=== PATIENT | female | born 1935 | race Caucasian/White ===

== ENCOUNTER → 2023-09-02 12:28 | Outpatient (REF) | payer MEDICARE, BC, SELFPAY | LOC: RAD 12:28 | PROVIDERS: ATTENDING PHYSICIAN Internal Medicine | DX: M25.552 Pain in left hip (principal) | CPT/HCPCS: 73502 ==

== ENCOUNTER 2023-11-07 05:58 | Inpatient (IN) | payer MEDICARE, BC, SELFPAY ==
--- NOTE | 2023-10-04 10:32 | CM ---
Patient is scheduled for an elective L THR on 11/07/23. Spoke with patient prior to surgery via telephone. Introduced role of Orthopedic Navigator. Patient reports that she lives alone in a two story home. There are two steps (1-1) to enter and a
flight of steps to the second floor (bilateral rails). She currently functions independently and uses a cane. She has no other DME and has never had VN services. PCP is Dr. Tate Bledsoe.
Discussed orthopedic program and post surgical plans. Reviewed anticipated length of stay and that goal is for her to return home at discharge. Also reviewed outpatient PT. Patient is in agreement with tentative plan but will not have transportation
for outpatient PT and will need VN services. Options and PAC data reviewed; patient selects [facility]. Patient states that her son will be staying with her for a week.
Patient will complete online education.
Plan: Orthopedic Navigator will remain available to assist with the care of patient and will reassess discharge needs after surgery.
[2023-10-18 09:18] VITALS: BMI 31.6
[2023-10-18 10:42] LABS: Hematocrit 37.8 % (37.0-47.0); Hemoglobin 13.4 g/dL (12.0-16.0); Mean Corp Hgb Conc. 35.4 g/dL (33.0-37.0); Mean Corpuscular Volume 84.6 fL (81.0-99.0); Mean Platelet Volume 9.2 fL (7.4-10.4); Platelet Count 315 10^3/uL (130-400); Red Blood Cell Count 4.47 10^6/uL (4.20-5.40); Red Cell Dist. Width 12.4 % (11.5-14.5); White Blood Cell Count 7.2 10^3/uL (4.8-10.8)
[2023-10-18 11:35] LABS: ALT (SGPT) 18 U/L (0-35); AST (SGOT) 27 U/L (14-36); Albumin 4.3 g/dl (3.5-5.0); Alkaline Phosphatase 92 U/L (38-126); Blood Urea Nitrogen 20 mg/dl (7-17); Calcium 10.1 mg/dl (8.4-10.2); Carbon Dioxide 28 mmol/L (22-30); Chloride 96 mmol/L (98-107); Estimated Creatinine Clearance 67 ml/min; Glucose 103 mg/dl (70-99); Sodium 132 mmol/L (135-145); Total Bilirubin 0.4 mg/dl (0.2-1.3); Total Protein 6.9 g/dl (6.3-8.2); eGFR > 60.00
[2023-10-18 12:25] LABS: Glycohemoglobin (HgbA1c) 6.3 % (4.0-5.6)
[2023-10-18 13:57] VITALS: BMI 31.6
[2023-11-07] VITALS (17 sets, daily range): BP systolic 86–153; BP diastolic 50–80; PULSE 66–81; O2SAT 98
[2023-11-07] MEDS: CELEBREX 200 MG PO (06:24)
[2023-11-07] MEDS: TYLENOL 650 MG PO ×2 (06:25→17:18)
[2023-11-07] MEDS: NORMOSOL-R 1000 IV (06:33)
[2023-11-07] MEDS: NSS 1000 IV (09:20)
--- NOTE | 2023-11-07 09:43 | SUR.PHASEI ---
Pharmacy called prior to administration of Tylenol # 3 as allergy listed. Told it was safe to give Tylenol #3. Yury Jordan RN BSN.
--- NOTE | 2023-11-07 10:53 | PTCARENOTE ---
Received patient from PACU via bed around 1015 in stable condition. Left hip dressing c/d/i. Left foot cool but cap refill < 2 sec. LLE pedal pulse by doppler. B/L + movement + sensation. Patient oriented to room. Call chatman in reach.
[2023-11-07 11:44] LABS: Glucose - Point of Care 139 mg/dl (70-99)
--- NOTE | 2023-11-07 12:42 | W.PN.ORTHO ---
Today's Communication / Plan
-
Await cardio recs and pending labs.
D/c when clinically stable.
Assessment
.
Dressing:
Clean, dry and intact.
Assessment:
L hip OA s/p Koki méndez/ Dr Naranjo 11/07/23
DVT prophylaxis - ASA, b/l venous foot pumps
Rapid response 2* syncope w/ associated marked bradycardia - pt reported initial lightheadedness when picking head up to drink cup of water while in bed - became responsive/HR improved after Trendelenberg position
- Consult Cardiology
- Labs pending
- EKG post-syncope w/ sinus bradycardia and ST and T wave abnormalities
- Monitor on tele
- Orthostatics q8h
- Hold Toprol XL tonight and AM anti-hypertensives (unless cardio feels differently). Last BB dose reportedly 11/05 at 8 PM
- Of note, pt describes h/o distant vasovagal syncope
Hypertension with white coat syndrome - holding anti-hypertensives given syncope POD 0 - monitor BP
Paroxysmal atrial tachycardia with palpitations - monitor on tele
- Holding Toprol XL given recent bradycardia
Ulcerative colitis - minimize NSAIDs post-surgery
Mild mitral regurgitation
Mild aortic regurgitation
Venous varicosities with insufficiency
Villous adenoma polyp, status post right hemicolectomy 2008
Lumbosacral degenerative disc disease
Left breast cancer, 1998, status post right lumpectomy and radiation
Squamous cell carcinoma, status post recurrent excisions
Overactive bladder
Stress incontinence
History of recurrent urinary tract infections
Mild hyponatremia
Prediabetes, A1c 6.3
Obesity, BMI 31.6
Plan
.
Surgery / Date: Koki méndez/ Dr Naranjo 11/07/23
DVT Prophylaxis: Aspirin
Activity:
Out of bed.
PT/OT
Discharge Plan: Home w/ VN
Subjective
.
.:
Rapid response called on this patient 2* syncope associated w/ marked bradycardia.
Pt assessed after rapid response - she's AAO x3. Neurologically intact. Denies current lightheadedness.
Vital Signs and Labs
.
Vital Signs and Labs:
Lab Results
10/18/23 10:27
10/18/23 10:27
Temp Pulse Resp BP Pulse Ox
98.4 F 73 16 153/80 100
11/07/23 06:15 11/07/23 06:15 11/07/23 06:15 11/07/23 06:15 11/07/23 06:15
Physical Exam
-
HEENT: No pallor, cyanosis, or jaundice. Throat clear.
NECK: Supple. No JVD.
RESPIRATORY: Lungs clear to auscultation.
CVS: Sinus bradycardia.
ABDOMEN: Soft, non-tender. No distension. Obese.
EXTREMITIES: Strength equal, no calf pain with palpation/dorsiflexion. Calves soft.
AIR BAG CURER: AOx3. No focal deficits. clearing supervisor grossly intact
[2023-11-07 12:56] LABS: Hematocrit 30.3 % (37.0-47.0); Hemoglobin 10.8 g/dL (12.0-16.0); Mean Corp Hgb Conc. 35.6 g/dL (33.0-37.0); Mean Corpuscular Hgb 30.8 pg (27.0-31.0); Mean Corpuscular Volume 86.3 fL (81.0-99.0); Mean Platelet Volume 9.6 fL (7.4-10.4); Platelet Count 250 10^3/uL (130-400); Red Blood Cell Count 3.51 10^6/uL (4.20-5.40); Red Cell Dist. Width 12.6 % (11.5-14.5); White Blood Cell Count 11.2 10^3/uL (4.8-10.8)
--- NOTE | 2023-11-07 13:03 | PTCARENOTE ---
Around 1135, phototypesetting equipment monitor alarming patients HR <50. HR steadily dropping to 30's. Went to assess patient. At that time patient was actively ringing. Patient stated she didn't feel well and become unresponsive. HR dropped to 28. BP 120/57. Blood
glucose 139. HIGHWAY ENGINEER called around 1136. Patient placed in Trendelenburg. Patient unresponsive to sternal rub. Patient remained unresponsive for about 30-45 seconds minute. Patient slowing awoke while in Trendelenburg. Was oriented x3. HIGHWAY ENGINEER in room. At
1145, BP 113/56 HR 61 94 RA. At 1155 BP 128/60 HR 60. EKG obtained. Labs drawn. Lana HARPER made aware and came to see patient. Cardiology c/s pending.
[2023-11-07 13:05] LABS: Blood Urea Nitrogen 19 mg/dl (7-17); Calcium 8.6 mg/dl (8.4-10.2); Carbon Dioxide 28 mmol/L (22-30); Chloride 97 mmol/L (98-107); Estimated Creatinine Clearance 67 ml/min; Glucose 116 mg/dl (70-99); Magnesium 1.7 mg/dl (1.6-2.3); Potassium 3.5 mmol/L (3.5-5.1); Sodium 132 mmol/L (135-145); eGFR > 60.00
--- NOTE | 2023-11-07 13:42 | CON.CAR ---
Addendum entered and electronically signed by Jonnie Jane DO 11/07/23 16:09:
I saw and examined the patient.
The Motor Vehicle Emissions Inspector's note was reviewed and I agree with the note.
Comment:
Plan:
HR and bp remain stable post vagal event.
Cont tele
Hold putpt Norvasc, HCTZ, Losartan and Toprol for now.
Consider resuming antihypertensives next 24 hrs pending bps. May hold HCTZ until reeval as outpt.
Discussed with family at bedside.
Recent echo reviewed, no need to repeat at this time.
Original Note:
Consultation
Consultation Request
Date/Time Consultation Requested: 11/07/2023
Date/Time Consultation Performed: 11/07/2023
Requesting Provider: Dr. Naranjo
Performing Provider: Dr. Jane
Reason for Consultation: Syncope, bradycardia
Medical History
-
History of Present Illness:
HPI: Allegra is an 87 year old female with PMH of hypertension, atrial tachycardia, mild MR, mild AR, UC, and breast cancer who presented for elective L BENNIE. She did well with the procedure, however after she returned to her room, she was taking a
sip of water when she started to feel lightheaded. She became bradycardic with HR dropping into the 30s. With this, she had syncopal episode and was out of it for approximately 30 seconds to 1 minute. She did not lose her pulse and no CPR was
required. She recovered after being placed in Trendelenburg position. HRs recovered into the 60s and she reports she is feeling well at this time. She admits to a history of vasovagal syncope and states she has had episodes like this in the past, so
she knew she was going to pass out. She has no dizziness, lightheadedness, SOB, chest pain or palpitations at this time. Pain is adequately controlled. Cardiology consulted for evaluation.
PMH:
Hypertension
Paroxysmal atrial tachycardia
Mild MR, mild AR by echo 05/2023
Ulcerative colitis
L breast cancer s/p lumpectomy and radiation
Prediabetes
Past Medical History
Past Medical History: Other (In HPI)
Past Surgical History: Orthopedic (L BENNIE 11/07/2023) and Other (R breast lumpectomy, cataract surgery b/l, appendectomy and colon resection)
Social History
Tobacco: Non-Smoker
Alcohol: None
Drug: None
Living: With Family
Employment: Retired
Family History
Family History: Hypertension
Allergies / Home Medications
Allergy/AdvReac Type Severity Reaction Status Date / Time
acetaminophen [From Percocet] Allergy vomiting Verified 11/07/23 06:07
and
dizziness
lisinopril Allergy cough and Verified 11/07/23 06:07
rash
oxycodone HCl [From Percocet] Allergy vomiting Verified 11/07/23 06:07
and
dizziness
pantoprazole sodium Allergy Rash Verified 11/07/23 06:07
[From Protonix]
adhesive bandages Allergy Rash Uncoded 11/07/23 06:07
�Medication �Instructions �Recorded �Confirmed �Type
amlodipine 2.5 mg tablet 2.5 mg PO DAILY 10/12/23 11/07/23 History
aspirin 81 mg chewable tablet 81 mg PO DAILY 10/12/23 11/07/23 History
cod liver oil 1 cap PO DAILY 10/12/23 11/07/23 History
hydrochlorothiazide 50 mg tablet 50 mg PO DAILY 10/12/23 11/07/23 History
ibuprofen 200 mg tablet (Advil) 200 mg PO QPM Pain 10/12/23 11/07/23 History
ibuprofen 200 mg tablet (Advil) 400 mg PO .AM Pain 10/12/23 11/07/23 History
losartan 100 mg tablet 100 mg PO DAILY 10/12/23 11/07/23 History
magnesium 200 mg tablet 400 mg PO DAILY 10/12/23 11/07/23 History
metoprolol succinate 50 mg 50 mg PO HS 10/12/23 11/07/23 History
tablet,extended release 24 hr
multivitamin 1 tab PO DAILY 10/12/23 11/07/23 History
mupirocin 2 % topical ointment 1 applic intranasal BID #1 tube 10/18/23 Rx
Review of Systems
-
History Source: Patient
All other systems: Negative unless noted
Physical Exam
Vital Signs
Temp Pulse Resp BP Pulse Ox
97.0 F 68 18 130/70 95
11/07/23 09:45 11/07/23 12:50 11/07/23 10:10 11/07/23 12:50 11/07/23 11:55
Lab Results
11/07/23 12:26
11/07/23 12:26
Physical Exam
General: Well Developed, Well Nourished and No Apparent Distress
HEENT: Normocephalic, Anicteric and Moist Mucous Membranes
Respiratory: Clear and Non Labored Respirations
Cardiac: S1/S2 and Regular Rhythm
Musculoskeletal: No Clubbing, No Cyanosis and No Edema
Skin: Warm and Dry
Neuro: AO x 3 and Nonfocal/Grossly Intact
Psych: Calm
Impression / Plan
-
PCP: Dr. Bledsoe
Sales Floor Team Leader: Dr. Jane
Impression:
OA s/p L BENNIE 11/07/2023
Syncope, suspect vasovagal
Bradycardia
Hypertension
Paroxysmal atrial tachycardia
Mild MR, mild AR by echo 05/2023
Ulcerative colitis
L breast cancer s/p lumpectomy and radiation
Prediabetes
Echo 05/30/2023: EF 70-75%, mild cLVH, mild MR, mild AR, minimally dilated aortic root, 3.7cm
Plan:
-s/p L BENNIE 11/06. Pain well controlled currently, does note some mild burning that is starting
-Syncopal episode noted today after taking a drink of water. Became bradycardic and felt lightheaded like she was going to pass out.
-Did briefly lose consciousness, however did not lose pulse. HR dropped to 28bpm. Improved after being placed in Trendelenburg position.
-Patient notes history of syncope similar to this.
-HR stable in the 60s currently on review of telemetry.
-BP stable. OP amlodipine, losartan, HCTZ, and Toprol currently held.
-Follow BP and HR overnight and resume as able.
-Hgb stable at 10.8.
-K 3.5, will replete.
HPI: Allegra is an 87 year old female with PMH of hypertension, atrial tachycardia, mild MR, mild AR, UC, and breast cancer who presented for elective L BENNIE. She did well with the procedure, however after she returned to her room, she was taking a
sip of water when she started to feel lightheaded. She became bradycardic with HR dropping into the 30s. With this, she had syncopal episode and was out of it for approximately 30 seconds to 1 minute. She did not lose her pulse and no CPR was
required. She recovered after being placed in Trendelenburg position. HRs recovered into the 60s and she reports she is feeling well at this time. She admits to a history of vasovagal syncope and states she has had episodes like this in the past, so
she knew she was going to pass out. She has no dizziness, lightheadedness, SOB, chest pain or palpitations at this time. Pain is adequately controlled. Cardiology consulted for evaluation.
Data Reviewed
-
EKG: Tracing Personally Visualized and interpreted
Radiology: Report Reviewed by me
Labs: Labs Reviewed by me
Old Records: Reviewed
[2023-11-07] MEDS: ANCEF 5 IV (14:42)
[2023-11-07] MEDS: KCL 20 MEQ PO (14:42)
[2023-11-07] MEDS: ASPIRIN 325 MG PO (17:18)
[2023-11-07 17:30] LABS: Glucose - Point of Care 134 mg/dl (70-99)
[2023-11-07] MEDS: BACTROBAN 2% OINTMENT 1 APPLIC NASAL (20:26)
[2023-11-07] MEDS: COLACE 100 MG PO (20:27)
[2023-11-07] MEDS: SENOKOT 17.1999999999999993 MG PO (20:27)
[2023-11-07] MEDS: DECADRON 4 MG PO (20:29)
[2023-11-07 21:38] LABS: Glucose - Point of Care 171 mg/dl (70-99)
[2023-11-08] MEDS: ANCEF 5 IV (00:04)
[2023-11-08] MEDS: TYLENOL 650 MG PO (00:04)
[2023-11-08 03:30] VITALS: BP 147/80
[2023-11-08 07:08] VITALS: BP 134/76
[2023-11-08 07:24] LABS: Glucose - Point of Care 175 mg/dl (70-99)
--- NOTE | 2023-11-08 08:05 | CM ---
Reviewed chart and held rounds with PT, OT and nursing. Patient admitted as planned for elective L THR. Met with patient, son and [id number] at bedside. Confirmed information previously obtained for assessment. Also discussed discharge plans.
The plan is for patient to return home at discharge. Her children will be staying with her until Tuesday. Patient is concerned about doing steps; told her she will practice steps with PT before discharge. Reviewed VN services including start of care
(tentatively 11/08), services to be ordered (PT, OT, SN. Family is requesting a FOOD COOKING MACHINE OPERATOR) and frequency/duration of services. Options list provided and PAC data reviewed. Patient selects VN.
Patient has a hip kit, raised toilet seat with rails and a cane at home. She will need a rolling walker issued at discharge; script obtained and given to PT.
VN referral was completed and sent to [facility] through [employer] with request for start of care on 11/08. Confirmation received of their ability to accept case. inspector and clerk to fax discharge instructions to [facility] when complete.
Patient will use [facility] pharmacy for discharge prescriptions.
[2023-11-08 08:30] VITALS: BP 124/71; BP 151/80; BP 151/81; PULSE 104; PULSE 90; PULSE 99
[2023-11-08] MEDS: ASPIRIN 325 MG PO (08:31)
[2023-11-08] MEDS: COLACE 100 MG PO (08:31)
[2023-11-08] MEDS: BACTROBAN 2% OINTMENT 1 APPLIC NASAL (08:31)
[2023-11-08] MEDS: DECADRON 4 MG PO (08:31)
[2023-11-08] MEDS: SENOKOT 17.1999999999999993 MG PO (08:31)
[2023-11-08] MEDS: TYLENOL #3 1 TABLET PO (08:40)
--- NOTE | 2023-11-08 09:14 | W.PN.CARDCBS ---
Today's Communication / Plan
-
She had syncope in the past per pt. No recurrent syncope or bradycardia since episode.
HR and BP stable.
Her Outpt amlodipine, losartan, HCTZ, and Toprol currently held. Resume Toprol and half dose Losartan at 50 mg daily
Monitor H/H
Cont post op care
Discussed with family at bedside.
Impression / Plan
-
.
PCP: Dr. Bledsoe
Arc Cutter: Dr. Jane
Impression:
OA s/p L BENNIE 11/07/2023
Syncope, suspect vasovagal
Bradycardia
Hypertension
Paroxysmal atrial tachycardia
Mild MR, mild AR by echo 05/2023
Ulcerative colitis
L breast cancer s/p lumpectomy and radiation
Prediabetes
Echo 05/30/2023: EF 70-75%, mild cLVH, mild MR, mild AR, minimally dilated aortic root, 3.7cm
Plan:
-s/p L BENNIE 11/06. Pain well controlled. Syncopal episode noted 11/06 after taking a drink of water. Became bradycardic and felt lightheaded like she was going to pass out.
-Did briefly lose consciousness, however did not lose pulse. HR dropped to 28bpm. Improved after being placed in Trendelenburg position.
She had syncope in the past per pt. No recurrent syncope or bradycardia since episode.
HR and BP stable.
Her Outpt amlodipine, losartan, HCTZ, and Toprol currently held. Resume Toprol and half dose Losartan at 50 mg daily
Recent echo reviewed, no need to repeat currently.
Monitor H/H
Cont post op care
Discussed with family at bedside.
HPI: Allegra is an 87 year old female with PMH of hypertension, atrial tachycardia, mild MR, mild AR, UC, and breast cancer who presented for elective L BENNIE. She did well with the procedure, however after she returned to her room, she was taking a
sip of water when she started to feel lightheaded. She became bradycardic with HR dropping into the 30s. With this, she had syncopal episode and was out of it for approximately 30 seconds to 1 minute. She did not lose her pulse and no CPR was
required. She recovered after being placed in Trendelenburg position. HRs recovered into the 60s and she reports she is feeling well at this time. She admits to a history of vasovagal syncope and states she has had episodes like this in the past, so
she knew she was going to pass out. She has no dizziness, lightheadedness, SOB, chest pain or palpitations at this time. Pain is adequately controlled. Cardiology consulted for evaluation.
Progress Note - Arc Cutter
Subjective
Date of Service: November 08, 2023
Pt seen and examined. No complaints. No chest pain or shortness of breath.
Objective
Labs:
11/07/23 12:26
11/07/23 12:26
Labs
Hgb 10.8 g/dL (12.0-16.0) L 11/07/23 12:26
Hct 30.3 % (37.0-47.0) L 11/07/23 12:26
Plt Count 250 10^3/uL (130-400) 11/07/23 12:26
Sodium 132 mmol/L (135-145) L 11/07/23 12:26
Potassium 3.5 mmol/L (3.5-5.1) 11/07/23 12:26
BUN 19 mg/dl (7-17) H 11/07/23 12:26
Creatinine 0.6 mg/dL (0.6-1.0) 11/07/23 12:26
Glucose 116 mg/dl (70-99) H 11/07/23 12:26
Vital Signs and I&O:
Vital Signs
Temp Pulse Resp BP Pulse Ox
98 F 90 18 124/71 94
11/08/23 07:08 11/08/23 08:29 11/08/23 07:08 11/08/23 08:29 11/08/23 07:08
Vital Signs
Temp Pulse Resp BP Pulse Ox
98 F 90 18 124/71 94
11/08/23 07:08 11/08/23 08:29 11/08/23 07:08 11/08/23 08:29 11/08/23 07:08
Intake & Output
11/06/23 11/07/23 11/08/23 11/09/23
06:59 06:59 06:59 06:59
Intake Total 2080 / 2080
Output Total 625 / 625
Balance 1456 / 1456
Physical Exam
Physical Exam
General: No acute distress, AAOX3
Neck: Negative JVD
Heart: Regular, Negative S3 positive S1/S2, Negative S4, No murmur
Lungs: CTA b/l, negative wheezes/rales/rhonchi
Abd: Positive BS, NT/ND, neg rebound/rigidity/guarding
Ext: Negative cyanosis/clubbing/edema
Neuro: nonfocal
[2023-11-08 10:04] VITALS: BP 129/60; BP 137/60; PULSE 99; O2SAT 97
[2023-11-08] MEDS: COZAAR 50 MG PO (10:47)
[2023-11-08 11:00] VITALS: BP 130/63
--- NOTE | 2023-11-08 11:39 | W.PN.ORTHO ---
Today's Communication / Plan
-
D/c today since clinically stable, did well w/ OT and PT.
Assessment
.
Distal Motor Intact: Yes
Dressing:
Clean, dry and intact.
Assessment:
L hip OA s/p Koki AVERY w/ Dr Naranjo 11/07/23
DVT prophylaxis - ASA, b/l venous foot pumps
Rapid response 2* syncope w/ associated marked bradycardia POD 0 - pt reported initial lightheadedness when picking head up to drink cup of water while in bed - became responsive/HR improved after Trendelenberg position
- Appreciate cardio. Will resume Toprol XL and Losartan at 1/2 dose
- Labs with mild reactive leukocytosis and chronic hyponatremia; otherwise stable
- EKG post-syncope w/ sinus bradycardia and ST and T wave abnormalities. Stable in comparison to baseline EKGs
- Stable tele overnight
- Orthostatic VS stable this AM. No need for Midodrine thankfully
- Given the above, episode felt likely to be vasovagal
Hypertension with white coat syndrome - anti-hypertensives held initially due to syncope POD 0
- Given BPs now stable, resume meds as stated above per Cardio
Paroxysmal atrial tachycardia with palpitations - rhythm stable on tele
- Resume Toprol XL
Ulcerative colitis - minimize NSAIDs post-surgery
Urinary retention post-op - improved by POD 1 w/ minimal PVR on bladder scan
Mild mitral regurgitation
Mild aortic regurgitation
Venous varicosities with insufficiency
Villous adenoma polyp, status post right hemicolectomy 2008
Lumbosacral degenerative disc disease
Left breast cancer, 1998, status post right lumpectomy and radiation
Squamous cell carcinoma, status post recurrent excisions
Overactive bladder
Stress incontinence
History of recurrent urinary tract infections
Mild hyponatremia
Prediabetes, A1c 6.3
Obesity, BMI 31.6
Plan
.
Surgery / Date: Koki méndez/ Dr Naranjo 11/07/23
DVT Prophylaxis: Aspirin
Activity:
Out of bed.
PT/OT
Discharge Plan: Home w/ VN
Subjective
.
.:
Patient resting comfortably in her chair this AM.
Feels much better in comparison to yesterday. No further syncopal episodes.
L hip pain well controlled w/ minimal pain meds.
Urinary retention overnight improved by this AM w/ minimal PVR.
Eager for potential d/c today.
Vital Signs and Labs
.
Vital Signs and Labs:
Lab Results
11/07/23 12:26
11/07/23 12:26
Temp Pulse Resp BP Pulse Ox
98 F 90 18 125/64 94
11/08/23 07:08 11/08/23 08:29 11/08/23 07:08 11/08/23 10:47 11/08/23 07:08
Non-invasive Hgb result: 10.8
Physical Exam
-
HEENT: No pallor, cyanosis, or jaundice. Throat clear.
NECK: Supple. No JVD.
RESPIRATORY: Lungs clear to auscultation.
CVS: S1, S2 normal. RRR.
ABDOMEN: Soft, non-tender. No distension. Obese.
EXTREMITIES: Strength equal, no calf pain with palpation/dorsiflexion. Calves soft.
SENIOR PHP SOFTWARE DEVELOPER: AOx3. No focal deficits. cigar making machine supervisor grossly intact
[2023-11-08 11:44] VITALS: BP 125/64; PULSE 87; O2SAT 97
--- NOTE | 2023-11-08 12:13 | W.DS.TRANS ---
DC Summary - Senior Construction Project Manager
-
Discharge Instructions:
Sleep Apnea Risk Low
Discharge Diagnosis/Procedures L hip OA s/p L BENNIE w/ Dr Naranjo 11/07/23
Diet Regular
Activity As tolerated,With Walker
Driving Restrictions Not until seen by your Dr
Bathing Restrictions OK to Shower
Other Services VN,PT,OT
Wound Care Dressing to be removed 1 week post-surgery.
[place] to be removed at 2 week follow-up with
surgeon's office.
Instructions:
Stand-Alone Forms: Total Hip/Knee Replacement D/C
Changes to Home Medications: Yes
Discharge Medications:
DC Medications w/original date entered in qunb
cod liver oil 1 cap PO DAILY Supplement 10/12/23
metoprolol succinate 50 mg tablet,extended release 24 hr 50 mg PO HS Heart Failure 10/12/23
multivitamin 1 tab PO DAILY Supplement 10/12/23
mupirocin 2 % topical ointment 1 applic intranasal BID #1 tube 10/18/23
acetaminophen 300 mg-codeine 30 mg tablet 1 - 2 tab PO Q6H PRN moderate-severe pain #30 tabs 11/08/23
acetaminophen 325 mg tablet 650 mg (2 x 325 mg) PO Q4H PRN mild pain #60 tabs 11/08/23
aspirin 325 mg tablet 325 mg PO DAILY #30 tabs 11/08/23
dexamethasone 4 mg tablet 4 mg PO BID #5 tabs 11/08/23
docusate sodium 100 mg capsule 100 mg PO BID #30 caps 11/08/23
losartan 50 mg tablet 50 mg PO DAILY #30 tabs 11/08/23
ondansetron HCl 4 mg tablet 4 mg PO Q6H PRN nausea and vomiting #30 tabs 11/08/23
sennosides 8.6 mg tablet (Senna Laxative) 17.2 mg (2 x 8.6 mg) PO BID #30 tabs 11/08/23
Home Medication Changes
acetaminophen 300 mg-codeine 30 mg tablet 1 - 2 tab PO Q6H PRN moderate-severe pain #30 tabs 11/08/23
acetaminophen 325 mg tablet 650 mg (2 x 325 mg) PO Q4H PRN mild pain #60 tabs 11/08/23
aspirin 325 mg tablet 325 mg PO DAILY #30 tabs 11/08/23
dexamethasone 4 mg tablet 4 mg PO BID #5 tabs 11/08/23
docusate sodium 100 mg capsule 100 mg PO BID #30 caps 11/08/23
losartan 50 mg tablet 50 mg PO DAILY #30 tabs 11/08/23
ondansetron HCl 4 mg tablet 4 mg PO Q6H PRN nausea and vomiting #30 tabs 11/08/23
sennosides 8.6 mg tablet (Senna Laxative) 17.2 mg (2 x 8.6 mg) PO BID #30 tabs 11/08/23
Pending Results: No
[2023-11-08 12:37] LABS: Glucose - Point of Care 227 mg/dl (70-99)
== END 2023-11-08 14:31 | disposition home health service (06) | DRG 470 ==
LOC: 2 SOUTH 05:58
PROVIDERS: Physician Assistant; ADMITTING PHYSICIAN Specialist; FAMILY PHYSICIAN Internal Medicine
PROC: 0SRB02A Replacement of Left Hip Joint with Metal on Polyethylene Synthetic Substitute, Uncemented, Open Approach (ICD-10-PCS; 2023-11-07)
DX: M16.12 Unilateral primary osteoarthritis, left hip (principal); K51.90 Ulcerative colitis, unspecified, without complications; E87.1 Hypo-osmolality and hyponatremia; I47.19 Other supraventricular tachycardia; I10 Essential (primary) hypertension; M51.37 Other intervertebral disc degeneration, lumbosacral region; E66.9 Obesity, unspecified; R73.03 Prediabetes; R55 Syncope and collapse; R00.1 Bradycardia, unspecified; N32.81 Overactive bladder; N39.3 Stress incontinence (female) (male); Z87.440 Personal history of urinary (tract) infections; Z68.31 Body mass index [BMI] 31.0-31.9, adult; Z85.3 Personal history of malignant neoplasm of breast; Z79.82 Long term (current) use of aspirin; Z79.1 Long term (current) use of non-steroidal anti-inflammatories (NSAID); Z88.6 Allergy status to analgesic agent; Z88.5 Allergy status to narcotic agent; Z91.048 Other nonmedicinal substance allergy status
CPT/HCPCS: 36415; 73502; 80048; 80053; 82962; 83036; 83735; 85027; 87070; 97110; 97116; 97162; 97167; 97530; 97535; C1713; C1776

== ENCOUNTER → 2023-12-01 13:30 | Outpatient (REF) | payer MEDICARE, BC, SELFPAY ==
[2023-12-01 15:35] LABS: % Basophils 0.7 % (0-2); % Eosinophils 3.4 % (0-6); % Immature Granulocytes 0.2 % (0-0.5); % Neutrophils 55.7 % (42.2-75.2); Absolute Eosinophils 0.2 10^3/uL (0-0.7); Absolute Lymphocytes 1.5 10^3/uL (1.2-3.4); Absolute Monocytes 0.9 10^3/uL (0.1-0.6); Absolute Neutrophils 3.2 10^3/uL (1.4-6.5); Hematocrit 32.1 % (37.0-47.0); Hemoglobin 10.8 g/dL (12.0-16.0); Mean Corp Hgb Conc. 33.6 g/dL (33.0-37.0); Mean Corpuscular Hgb 29.8 pg (27.0-31.0); Mean Corpuscular Volume 88.7 fL (81.0-99.0); Mean Platelet Volume 9.7 fL (7.4-10.4); Nucleated Red Blood Cells % 0 %; Platelet Count 387 10^3/uL (130-400); Red Blood Cell Count 3.62 10^6/uL (4.20-5.40); Red Cell Dist. Width 13.8 % (11.5-14.5); White Blood Cell Count 5.8 10^3/uL (4.8-10.8)
[2023-12-01 16:05] LABS: Erythrocyte Sed Rate 48 mm/hour (0-20)
== END ==
LOC: RAD 13:30
PROVIDERS: ATTENDING PHYSICIAN Physician Assistant Surgical; FAMILY PHYSICIAN Internal Medicine
DX: M79.662 Pain in left lower leg (principal); Z96.642 Presence of left artificial hip joint
CPT/HCPCS: 36415; 85025; 85652; 86140; 93971

== ENCOUNTER → 2024-02-28 06:35 | Outpatient (REF) | payer MEDICARE, BC, SELFPAY ==
[2024-02-28 07:22] LABS: % Basophils 1.1 % (0-2); % Eosinophils 3.6 % (0-6); % Immature Granulocytes 0.2 % (0-0.5); % Lymphocytes 25.3 % (20.5-51.1); % Neutrophils 57.8 % (42.2-75.2); Absolute Basophils 0.1 10^3/uL (0-0.2); Absolute Eosinophils 0.2 10^3/uL (0-0.7); Absolute Lymphocytes 1.4 10^3/uL (1.2-3.4); Absolute Monocytes 0.7 10^3/uL (0.1-0.6); Absolute Neutrophils 3.2 10^3/uL (1.4-6.5); Hemoglobin 12.8 g/dL (12.0-16.0); Mean Corp Hgb Conc. 33.7 g/dL (33.0-37.0); Mean Corpuscular Hgb 27.9 pg (27.0-31.0); Mean Corpuscular Volume 82.8 fL (81.0-99.0); Mean Platelet Volume 9.9 fL (7.4-10.4); Nucleated Red Blood Cells % 0 %; Platelet Count 286 10^3/uL (130-400); Red Blood Cell Count 4.59 10^6/uL (4.20-5.40); Red Cell Dist. Width 14.6 % (11.5-14.5); White Blood Cell Count 5.6 10^3/uL (4.8-10.8)
[2024-02-28 08:00] LABS: ALT (SGPT) 16 U/L (0-35); AST (SGOT) 24 U/L (14-36); Alkaline Phosphatase 85 U/L (38-126); Blood Urea Nitrogen 13 mg/dl (7-17); Calcium 9.8 mg/dl (8.4-10.2); Carbon Dioxide 27 mmol/L (22-30); Chloride 102 mmol/L (98-107); Glucose 106 mg/dl (70-99); HDL Cholesterol 56 mg/dl; LDL Cholesterol, Calculated 105 mg/dl; Potassium 4.5 mmol/L (3.5-5.1); Sodium 139 mmol/L (135-145); Total Bilirubin 0.6 mg/dl (0.2-1.3); Total Cholesterol 187 mg/dl (50-199); Total Protein 6.4 g/dl (6.3-8.2); Triglyceride 133 mg/dl (10-149); Very Low Density Lipoprotein 26 mg/dl (0-30); eGFR > 60.00
== END ==
LOC: REG 06:35
PROVIDERS: ATTENDING PHYSICIAN Internal Medicine; REFERRING PHYSICIAN Nuclear Medicine Nuclear Cardiology
DX: Z00.00 Encounter for general adult medical examination without abnormal findings (principal); I10 Essential (primary) hypertension; E66.3 Overweight
CPT/HCPCS: 36415; 80053; 80061; 85025

== ENCOUNTER 2024-08-22 12:33 | Emergency (ER) | payer MEDICARE, BC, SELFPAY ==
[2024-08-22 12:44] VITALS: BP 165/111
[2024-08-22 13:28] LABS: % Basophils 0.9 % (0-2); % Eosinophils 0.6 % (0-6); % Immature Granulocytes 0.2 % (0-0.5); % Lymphocytes 17.2 % (20.5-51.1); % Monocytes 6.3 % (1.7-9.3); % Neutrophils 74.8 % (42.2-75.2); Absolute Basophils 0.1 10^3/uL (0-0.2); Absolute Eosinophils 0.1 10^3/uL (0-0.7); Absolute Lymphocytes 1.4 10^3/uL (1.2-3.4); Absolute Monocytes 0.5 10^3/uL (0.1-0.6); Absolute Neutrophils 6.1 10^3/uL (1.4-6.5); Hematocrit 42.2 % (37.0-47.0); Hemoglobin 14.2 g/dL (12.0-16.0); Mean Corp Hgb Conc. 33.6 g/dL (33.0-37.0); Mean Corpuscular Hgb 28.8 pg (27.0-31.0); Mean Corpuscular Volume 85.6 fL (81.0-99.0); Mean Platelet Volume 9.9 fL (7.4-10.4); Nucleated Red Blood Cells % 0 %; Platelet Count 251 10^3/uL (130-400); Red Blood Cell Count 4.93 10^6/uL (4.20-5.40); White Blood Cell Count 8.2 10^3/uL (4.8-10.8)
[2024-08-22 13:49] LABS: Blood Urea Nitrogen 20 mg/dl (7-17); Calcium 9.7 mg/dl (8.4-10.2); Carbon Dioxide 24 mmol/L (22-30); Chloride 98 mmol/L (98-107); Glucose 97 mg/dl (70-99); Sodium 133 mmol/L (135-145); eGFR > 60.00
[2024-08-22 13:57] LABS: Troponin I < 0.012 ng/ml
[2024-08-22 15:07] VITALS: BP 185/96
[2024-08-22 16:20] VITALS: BP 185/82
[2024-08-22 16:50] VITALS: BP 182/67
[2024-08-22 17:00] VITALS: BP 164/76
--- NOTE | 2024-08-22 17:02 | ED.GENMED ---
History of Present Illness
General
Chief Complaint: Dizziness
Source: patient and ambulance crew
Exam Limitations: none
Time Seen by Provider: 08/22/24 16:14
Nursing documentation reviewed up to this point in time: agreed with
History of Present Illness
History of Present Illness:
88-year-old female presents Emergency Department due to elevated blood pressure and dizziness. She received news that her [id number] down and then felt dizzy immediately. She denies any headache or weakness.
Past History
Past History
ED Past Medical History: Arrthythmia and HTN
ED Past Surgical History: Bowel resection, Gynecological (Tubal ligation) and Other (Bilateral cataract)
Social History
Tobacco: Non-smoker
Alcohol: None
Drug: None
Review of Systems
Review of Systems
Allergies reviewed?: Yes
All Other Systems: Not applicable
Constitutional: Reports no symptoms
EENT: Reports no symptoms
Respiratory: Reports no symptoms
Cardiac: Reports no symptoms
ABD/GI: Reports no symptoms
: Reports no symptoms
Musculoskeletal: Reports no symptoms
Skin: Reports no symptoms
Neurological: Reports dizzy
Endocrine: Reports no symptoms
Hematologic/Lymphatic: Reports no symptoms
Psychiatric: Reports no symptoms
Phy Exam
Physical Exam
Physical Exam:
Physical Exam
General: no apparent distress, not acutely ill, BP 185/82
Neck: supple. no meningeal signs. normal posterior pharynx
Heart: s1/s2 regular rate and rhythm, no murmur. equal radial
pulses.
HEENT: Pupils equal round reactive to light, EOMI
Lungs: no acute respiratory distress. clear bilaterally
Abdomen: normal bowel sounds. not tender. no CVAT
Neuro: alert and oriented. no focal neurological deficits cranial nerves II through XII intact
Skin: no rash
Psychiatric: well kept. interactive and cooperative
Extremities: no edema. no calf tenderness. negative homans. good distal pulses
Course
Orders/Labs/Results
Orders:
Orders
08/22/24 12:45
EKG [Electrocardiogram (*1)] Urgent
Reason for Study: Hypertension, Benign
08/22/24 12:46
EKG- Treatment ONCE
08/22/24 13:17
Basic Metabolic Panel Urgent
Complete Blood Count/With Diff Urgent
Troponin I Urgent
Abnormal Lab Results
08/22/24
13:17
Lymphocytes % 17.2 L %
(20.5-51.1)
Sodium 133 L mmol/L
(135-145)
BUN 20 H mg/dl
(7-17)
Creatinine 0.5 L mg/dL
(0.6-1.0)
08/22/24 13:17
08/22/24 13:17
Vital Signs
Initial and Last Documented VS:
Initial Vital Signs
Temp Pulse Resp BP Pulse Ox
97.4 F 69 18 165/111 99
08/22/24 12:44 08/22/24 12:44 08/22/24 12:44 08/22/24 12:44 08/22/24 12:44
Last Documented Vital Signs
Temp Pulse Resp BP Pulse Ox
97.4 F 63 14 185/82 99
08/22/24 12:44 08/22/24 16:22 08/22/24 16:20 08/22/24 16:20 08/22/24 16:22
MDM/Problems Addressed
Differential Diagnosis Includes:
Hypertensive urgency, ACS
MDM/Problems Addressed:
88-year-old female with hypertension, possibly hypertensive urgency, now asymptomatic. Doubt ACS or PE. EKG compared from 07/04/2024 no changes seen.
Chronic conditions affecting care: HTN and Arrhythmia
*Pulse Oximetry
Patient hypoxic: no
*EKG
Interpreted by ED Provider?: Yes
EKG Intrepretation Date: 08/22/24
EKG Intrepretation Time: 12:54
Interpretation: abnormal
Comparison EKG: no changes
Heart Rate: 70
Rate: normal
Rhythm: sinus
[place]: normal axis
Interval: normal interval
QRS Pattern: normal QRS
Ischemia: non-specific ST changes
*Vice President Digital Strategist Interpretation
Rate: normal
Interpretation: normal
Heart Rate: 72
Rhythm: sinus
*Critical Care Note
Total Time (30-74mins, 75-104mins- exclusive of procedures): Not Applicable
Data Reviewed
Review of Other/Old Records Reveals: Records (Reviewed EKG from 07/04/[address] Colon, who agreed there was no change.)
Source: physician
Patient Management
Social determinants of health affecting care: Living situation
Discussion with other providers: Tester/Lift Trucker (Discussed with Dr. Colon, maintenance journeyman who reviewed today's EKG and EKG from 07/04/2024 and agrees there is no change)
Escalation/DeEscalation of care consider admission/obs:
Admit not indicated
ED Attending Note
-
Portions of this chart may have been created with voice recognition software.� Occasional wrong word or��sound alike� substitutions may have occurred due to the inherent limitations of voice recognition software.
Discharge Plan
Departure
Patient Disposition: Home (Routine Discharge)
Date of Disposition: 08/22/24
Time of Disposition: 17:08
Patient with high blood pressure during this ER visit?: Yes
Condition: Good
Discharge Problem:
Hypertensive urgency
Instructions: Dizziness, BLOOD PRESSURE
Prescriptions:
No Action
metoprolol succinate 50 mg Tablet Extended Release 24 Hr
50 mg PO HS
multivitamin Tablet
1 tab PO DAILY
cod liver oil Capsule
1 cap PO DAILY
mupirocin 2 % ointment
1 applic intranasal BID Qty: 1 0RF
Patient Comments:
last dose was this am, 11/07/23.
aspirin 325 mg Tablet
325 mg PO DAILY Qty: 30 0RF
Rx Instructions:
Take daily x4 weeks for blood clot prevention; then resume Aspirin 81 mg daily.
losartan 50 mg Tablet
50 mg PO DAILY Qty: 30 1RF
Rx Instructions:
HOLD if systolic blood pressure <130 while on Tylenol with Codeine.
docusate sodium 100 mg Capsule
100 mg PO BID Qty: 30 0RF
dexamethasone 4 mg Tablet
4 mg PO BID Qty: 5 0RF
Rx Instructions:
Restart night of discharge and continue twice a day until finished.
Take with food.
sennosides [Senna Laxative] 8.6 mg Tablet
17.2 mg PO BID Qty: 30 0RF
acetaminophen 325 mg Tablet
650 mg PO Q4H PRN (Reason: mild pain) Qty: 60 0RF
Rx Instructions:
DO NOT exceed >4000 mg daily while on Tylenol with Codeine.
1 Tylenol with Codeine = 300 mg of Tylenol.
ondansetron HCl 4 mg tablet
4 mg PO Q6H PRN (Reason: nausea and vomiting) Qty: 30 0RF
acetaminophen-codeine 300-30 mg Tablet
1 - 2 tab PO Q6H PRN (Reason: moderate-severe pain) Qty: 30 0RF
Rx Instructions:
1 tab for moderate pain, 2 if severe.
Dx total joint.
Referrals:
Angel Bledsoe MD [Family Provider] -
Interventions
Interventions:
*Risk Screen - Suicide Last Done: 08/22/24 12:44
*General Assessment Last Done: 08/22/24 12:44
*Neglect/Abuse Screening Last Done: 08/22/24 12:44
*ED COVID-19 Vaccine History Last Done: 08/22/24 12:44
ED- Neurological Assessment Last Done: 08/22/24 16:22
ED- Cardiac Assessment Last Done: 08/22/24 16:22
Discharge Date and Time
Print Language: MACANESE
== END 2024-08-22 18:02 | disposition home or self-care (01) ==
LOC: EMR 12:33
PROVIDERS: Student in an Organized Health Care Education/Training Program; EMERGENCY PHYSICIAN Emergency Medicine; FAMILY PHYSICIAN Internal Medicine
DX: I16.0 Hypertensive urgency (principal); Z98.51 Tubal ligation status
CPT/HCPCS: 99283; 80048; 84484; 85025; 93005

== ENCOUNTER → 2025-02-22 06:34 | Outpatient (REF) | payer MEDICARE, BC, SELFPAY ==
[2025-02-22 07:38] LABS: Hematocrit 39.6 % (37.0-47.0); Hemoglobin 13.5 g/dL (12.0-16.0); Mean Corp Hgb Conc. 34.1 g/dL (33.0-37.0); Mean Corpuscular Volume 87.4 fL (81.0-99.0); Nucleated Red Blood Cells % 0 %; Platelet Count 271 10^3/uL (130-400); Red Cell Dist. Width 12.8 % (11.5-14.5)
[2025-02-22 08:12] LABS: ALT (SGPT) 24 U/L (0-35); AST (SGOT) 25 U/L (14-36); Albumin 4.3 g/dl (3.5-5.0); Alkaline Phosphatase 86 U/L (38-126); Blood Urea Nitrogen 11 mg/dl (7-17); Calcium 9.8 mg/dl (8.4-10.2); Carbon Dioxide 29 mmol/L (22-30); Chloride 103 mmol/L (98-107); Glucose 113 mg/dl (70-99); HDL Cholesterol 65 mg/dl; LDL Cholesterol, Calculated 128 mg/dl; Potassium 4.4 mmol/L (3.5-5.1); Sodium 138 mmol/L (135-145); Total Protein 6.8 g/dl (6.3-8.2); Very Low Density Lipoprotein 23 mg/dl (0-30); eGFR > 60.00
[2025-02-22 11:16] LABS: Glycohemoglobin (HgbA1c) 6.1 % (4.0-5.6)
== END ==
LOC: REG 06:34
PROVIDERS: ATTENDING PHYSICIAN Internal Medicine
DX: I10 Essential (primary) hypertension (principal); E66.9 Obesity, unspecified; Z00.01 Encounter for general adult medical examination with abnormal findings; R73.9 Hyperglycemia, unspecified
CPT/HCPCS: 36415; 80053; 80061; 83036; 85025

== ENCOUNTER → 2025-03-25 10:00 | Outpatient (REF) | payer MEDICARE, BC, SELFPAY | LOC: RCS 10:00 | PROVIDERS: ATTENDING PHYSICIAN Nuclear Medicine Nuclear Cardiology; FAMILY PHYSICIAN Internal Medicine | DX: R00.2 Palpitations (principal); R00.0 Tachycardia, unspecified; R94.31 Abnormal electrocardiogram [ECG] [EKG]; I08.0 Rheumatic disorders of both mitral and aortic valves | CPT/HCPCS: 93306 ==